=== PATIENT | female | born 2000 | race African-American/Black ===

== ENCOUNTER 2021-04-09 19:22 | Emergency (ER) | payer MEDICAID ==
[~2021-04-09] VITALS: Ht 157.5 cm; Wt 49.9 kg
[~2021-04-09 19:22] MED LIST: CLONIDINE0.1; HYDROXYZINE HCL25 M1 PO; RISPERDAL0.5 MG PO
[2021-04-09 21:24] VITALS: BP 124/78
== END 2021-04-09 21:24 | disposition home or self-care (01) ==
LOC: M.ERS 19:22
DX: M25.561 Pain in right knee (principal); X50.1XXA Overexertion from prolonged static or awkward postures, initial encounter; Y93.89 Activity, other specified; Y92.89 Other specified places as the place of occurrence of the external cause; Y99.8 Other external cause status